=== PATIENT | female | born 1940 | race Caucasian/White ===

== ENCOUNTER 2023-02-23 20:12 | Inpatient (IN) | payer MEDICARE ==
[~2023-02-23 20:12] MED LIST: Iopamidol 300 61% 100 ML VIAL FS ONE
[2023-02-23 21:23] LABS: #Basophils 0.1 10x3/uL (0.0-0.2); #Eosinphils 0.3 10x3/uL (0.0-0.5); #Monocytes 1.8 10x3/uL (0.0-1.1); #Neutrophils 17.5 10x3/uL (1.5-8.4); %Basophils 0.4 % (0.0-2.0); %Eosinophils 1.2 % (0.0-6.0); %Lymphocytes 3.2 % (18.0-47.0); %Monocytes 8.6 % (0.0-10.0); %Neutrophils 86.2 % (40.0-75.0); Hematocrit 31.5 % (34.9-44.5); Hemoglobin 10.6 g/dL (12.0-15.5); Mean Corpuscular HGB CONC 33.7 g/dL (32.0-36.0); Mean Corpuscular Hemoglobin 32.2 pg (27.0-33.0); Mean Corpuscular Volume 95.7 fl (81.6-98.3); Platelet Count 460 10x3/uL (150-450); RBC Distribution Width 16.7 % (11.5-14.5); Red Blood Cell (RBC) Count 3.29 10x6/uL (3.90-5.03); White Blood Cell (WBC) Count 20.3 10x3/uL (3.5-10.5)
[2023-02-23 21:33] LABS: ALT (SGPT) 15 U/L (8-55); AST (SGOT) 25 U/L (5-34); Alkaline Phosphatase 110 U/L (40-110); Anion Gap 14 mmol/L (10-20); BUN (Urea Nitrogen) 21 mg/dL (9.8-20.1); Bilirubin, Total 1.7 mg/dL (0.2-1.2); Calc. Creatinine Clearance 0 mL/min (70-130); Calcium 9.6 mg/dL (7.8-10.44); Carbon Dioxide 25 mmol/L (23-31); Chloride 107 mmol/L (98-107); Estimated GFR 48; Globulin 2.5 g/dL (2.4-3.5); Glucose 131 mg/dL (83-110); Lipase 22 U/L (8-78); Potassium 4.3 mmol/L (3.5-5.1); Protein, Total 6.5 g/dL (5.8-8.1); Sodium 142 mmol/L (136-145)
[2023-02-23 21:39] LABS: Troponin I Less than 0.010 ng/mL (< 0.028)
[2023-02-23] MEDS ORDERED: Ondansetron PF 4 MG/2 ML Vial ONE (22:34)
[2023-02-23 22:36] LABS: SARS-CoV-2 NAA Rapid Test Not Detected (NotDetected)
[2023-02-23 23:03] LABS: Bilirubin Neg (Negative); Blood, Urine 25 (Negative); Clarity Slightly Cloudy (Clear); Glucose, Urine (Dipstick) Normal (Negative); Ketone, Urine Negative (Negative); Leukocyte 100 (Negative); Nitrite Negative (Negative); Protein, Urine (Dipstick) 30 mg/dl (Neg-Trace); Specific Gravity, Urine 1.015 (1.005-1.030); Urobilinogen Normal mg/dL (Less than 2)
[2023-02-23 23:09] LABS: CAUTI Indications for Culture Alt mental st,lethar; WBC/HPF 21-50 HPF (0-3)
[2023-02-23 23:13] LABS: Squamous Epithelial 0-3 HPF (0-3)
[2023-02-23 23:14] LABS: RBC/HPF 0-3 HPF (0-3)
[2023-02-23 23:15] LABS: Bacteria/HPF 1+ HPF (None Seen)
[2023-02-23] MEDS ORDERED: Ketorolac Tromethamine 30 MG/ML VIAL ONE (23:15)
[2023-02-23] MEDS ORDERED: Amoxicillin/Potassium Clav 875 MG TAB ONE (23:15)
[2023-02-23] MEDS ORDERED: metroNIDAZOLE 500 MG/100 ML BAG ONE (23:16)
[2023-02-23 23:17] LABS: Urine Culture Reflex Yes Yes
[2023-02-23] MEDS ORDERED: Promethazine HCl 12.5 MG in Sodium Chloride 0.9% 50 ML IVPB SCH (23:45)
[2023-02-23] MEDS ORDERED: Acetaminophen 500 MG TAB ONE (23:56)
[2023-02-23] MEDS ORDERED: cefTRIAXone (ROCEPHIN) 1 GM VIAL ONE (23:57)
[2023-02-24 00:04] LABS: Lactic Acid 3.6 mmol/L (0.5-2.2)
[2023-02-24] MEDS ORDERED: Ondansetron PF 4 MG/2 ML Vial IVP PRN (00:33)
[2023-02-24] MEDS ORDERED: Calcium Carbonate 500 MG ChewTAB PO PRN (00:33)
[2023-02-24] MEDS ORDERED: cefTRIAXone (ROCEPHIN) 1 GM VIAL ONE (01:18)
[2023-02-24] MEDS ORDERED: Lactated Ringer's 500 ML IV SCH (03:30)
[2023-02-24 03:54] VITALS: BMI 44.7
[2023-02-24 04:28] LABS: Lactic Acid 2.9 mmol/L (0.5-2.2)
[2023-02-24 04:31] LABS: #Basophils 0.1 10x3/uL (0.0-0.2); #Monocytes 0.7 10x3/uL (0.0-1.1); #Neutrophils 15.7 10x3/uL (1.5-8.4); %Basophils 0.4 % (0.0-2.0); %Eosinophils 0.1 % (0.0-6.0); %Lymphocytes 1.5 % (18.0-47.0); %Monocytes 4.3 % (0.0-10.0); %Neutrophils 93.2 % (40.0-75.0); Hematocrit 29.2 % (34.9-44.5); Hemoglobin 9.7 g/dL (12.0-15.5); Mean Corpuscular HGB CONC 33.2 g/dL (32.0-36.0); Mean Corpuscular Hemoglobin 32.7 pg (27.0-33.0); Mean Corpuscular Volume 98.3 fl (81.6-98.3); Mean Platelet Volume 9.8 fl (7.4-10.4); Platelet Count 361 10x3/uL (150-450); RBC Distribution Width 15.9 % (11.5-14.5); Red Blood Cell (RBC) Count 2.97 10x6/uL (3.90-5.03); White Blood Cell (WBC) Count 16.9 10x3/uL (3.5-10.5)
[2023-02-24 04:32] LABS: Anion Gap 16 mmol/L (10-20); BUN (Urea Nitrogen) 22 mg/dL (9.8-20.1); Calc. Creatinine Clearance 72 mL/min (70-130); Calcium 8.8 mg/dL (7.8-10.44); Carbon Dioxide 21 mmol/L (23-31); Chloride 109 mmol/L (98-107); Estimated GFR 55; Glucose 141 mg/dL (83-110); Potassium 4.2 mmol/L (3.5-5.1); Sodium 142 mmol/L (136-145)
[2023-02-24 04:49] LABS: Free T4 (Free Thyroxine) 0.74 ng/dL (0.70-1.48); Thyroid Stimulating Hormone 4.828 uIU/mL (0.35-4.94)
[2023-02-24] MEDS: Levothyroxine 150 MCG TAB PO SCH (08:14)
[2023-02-24] MEDS: Atorvastatin Calcium 10 MG TAB PO SCH (10:12)
[2023-02-24] MEDS: Dronedarone HCl 400 MG TAB PO SCH ×2 (10:12→22:09)
[2023-02-24] MEDS: Allopurinol 100 MG TAB PO SCH (10:12)
[2023-02-24] MEDS: Apixaban 5 MG TAB PO SCH ×2 (10:13→22:10)
[2023-02-24] MEDS: Acetaminophen 325 MG TAB PO PRN (18:26)
[2023-02-24] MEDS: cefTRIAXone\\ROCEPHIN 2 GM in Sodium Chloride 0.9% 100 ML IVPB SCH (22:05)
[2023-02-25 04:17] LABS: #Neutrophils 6.5 10x3/uL (1.5-8.4); %Basophils 0.5 % (0.0-2.0); %Eosinophils 0.5 % (0.0-6.0); %Lymphocytes 12.5 % (18.0-47.0); %Neutrophils 74.8 % (40.0-75.0); Hematocrit 26.3 % (34.9-44.5); Hemoglobin 8.7 g/dL (12.0-15.5); Mean Corpuscular HGB CONC 33.1 g/dL (32.0-36.0); Mean Corpuscular Hemoglobin 32.3 pg (27.0-33.0); Mean Corpuscular Volume 97.8 fl (81.6-98.3); Platelet Count 316 10x3/uL (150-450); RBC Distribution Width 16.4 % (11.5-14.5); Red Blood Cell (RBC) Count 2.69 10x6/uL (3.90-5.03); White Blood Cell (WBC) Count 8.7 10x3/uL (3.5-10.5)
[2023-02-25 04:26] LABS: Anion Gap 12 mmol/L (10-20); BUN (Urea Nitrogen) 18 mg/dL (9.8-20.1); Calc. Creatinine Clearance 89 mL/min (70-130); Calcium 8.8 mg/dL (7.8-10.44); Carbon Dioxide 23 mmol/L (23-31); Chloride 106 mmol/L (98-107); Estimated GFR 71; Glucose 114 mg/dL (83-110); Potassium 3.5 mmol/L (3.5-5.1); Sodium 137 mmol/L (136-145)
[2023-02-25 04:31] LABS: Troponin I Less than 0.010 ng/mL (< 0.028)
[2023-02-25] MEDS: Acetaminophen 325 MG TAB PO PRN ×3 (06:05→20:58)
[2023-02-25] MEDS: Levothyroxine 150 MCG TAB PO SCH (06:11)
[2023-02-25] MEDS: Apixaban 5 MG TAB PO SCH ×2 (08:36→20:58)
[2023-02-25] MEDS: Atorvastatin Calcium 10 MG TAB PO SCH (08:36)
[2023-02-25] MEDS: Allopurinol 100 MG TAB PO SCH (08:36)
[2023-02-25] MEDS: Dronedarone HCl 400 MG TAB PO SCH ×2 (08:36→20:58)
[2023-02-25] MEDS: cefTRIAXone\\ROCEPHIN 2 GM in Sodium Chloride 0.9% 100 ML IVPB SCH (23:09)
[2023-02-26 03:57] LABS: #Eosinphils 0.2 10x3/uL (0.0-0.5); #Neutrophils 4.4 10x3/uL (1.5-8.4); %Basophils 0.5 % (0.0-2.0); %Eosinophils 2.8 % (0.0-6.0); %Lymphocytes 22.6 % (18.0-47.0); %Monocytes 13.9 % (0.0-10.0); %Neutrophils 59.7 % (40.0-75.0); Mean Corpuscular HGB CONC 34.8 g/dL (32.0-36.0); Mean Corpuscular Hemoglobin 33.5 pg (27.0-33.0); Mean Corpuscular Volume 96.2 fl (81.6-98.3); Mean Platelet Volume 9.7 fl (7.4-10.4); Platelet Count 316 10x3/uL (150-450); RBC Distribution Width 15.4 % (11.5-14.5); Red Blood Cell (RBC) Count 2.39 10x6/uL (3.90-5.03); White Blood Cell (WBC) Count 7.4 10x3/uL (3.5-10.5)
[2023-02-26 04:04] LABS: Anion Gap 10 mmol/L (10-20); BUN (Urea Nitrogen) 14 mg/dL (9.8-20.1); Calc. Creatinine Clearance 100 mL/min (70-130); Carbon Dioxide 25 mmol/L (23-31); Chloride 107 mmol/L (98-107); Estimated GFR 82; Glucose 96 mg/dL (83-110); Potassium 3.4 mmol/L (3.5-5.1); Sodium 139 mmol/L (136-145)
[2023-02-26] MEDS: Levothyroxine 150 MCG TAB PO SCH (05:33)
[2023-02-26] MEDS: Dronedarone HCl 400 MG TAB PO SCH ×2 (07:55→21:45)
[2023-02-26] MEDS: Atorvastatin Calcium 10 MG TAB PO SCH (07:56)
[2023-02-26] MEDS: Allopurinol 100 MG TAB PO SCH (07:56)
[2023-02-26] MEDS: Apixaban 5 MG TAB PO SCH ×2 (07:56→21:45)
[2023-02-26] MEDS: cefTRIAXone\\ROCEPHIN 2 GM in Sodium Chloride 0.9% 100 ML IVPB SCH (22:09)
[2023-02-27] MEDS: Acetaminophen 325 MG TAB PO PRN (00:30)
[2023-02-27 04:49] LABS: #Basophils 0.1 10x3/uL (0.0-0.2); #Eosinphils 0.2 10x3/uL (0.0-0.5); #Monocytes 0.9 10x3/uL (0.0-1.1); #Neutrophils 4.2 10x3/uL (1.5-8.4); %Basophils 0.7 % (0.0-2.0); %Eosinophils 3.3 % (0.0-6.0); %Lymphocytes 25.2 % (18.0-47.0); %Neutrophils 57.8 % (40.0-75.0); Hematocrit 22.6 % (34.9-44.5); Hemoglobin 7.7 g/dL (12.0-15.5); Mean Corpuscular HGB CONC 34.1 g/dL (32.0-36.0); Mean Corpuscular Volume 93.8 fl (81.6-98.3); Mean Platelet Volume 9.9 fl (7.4-10.4); Platelet Count 343 10x3/uL (150-450); RBC Distribution Width 15.5 % (11.5-14.5); Red Blood Cell (RBC) Count 2.41 10x6/uL (3.90-5.03); White Blood Cell (WBC) Count 7.3 10x3/uL (3.5-10.5)
[2023-02-27 06:09] LABS: Anion Gap 14 mmol/L (10-20); BUN (Urea Nitrogen) 10 mg/dL (9.8-20.1); Calc. Creatinine Clearance 92 mL/min (70-130); Calcium 9.4 mg/dL (7.8-10.44); Carbon Dioxide 26 mmol/L (23-31); Chloride 105 mmol/L (98-107); Estimated GFR 74; Glucose 93 mg/dL (83-110); Potassium 3.1 mmol/L (3.5-5.1); Sodium 142 mmol/L (136-145)
[2023-02-27] MEDS: Levothyroxine 150 MCG TAB PO SCH (06:11)
[2023-02-27] MEDS ORDERED: Electrolyte Replacement Protocol 1 EACH FS PRN (09:08)
[2023-02-27] MEDS ORDERED: Potassium Chloride 20 MEQ TAB PO SCH ×2 (09:15)
[2023-02-27] MEDS: Allopurinol 100 MG TAB PO SCH (10:13)
[2023-02-27] MEDS: Apixaban 5 MG TAB PO SCH (10:13)
[2023-02-27] MEDS: Atorvastatin Calcium 10 MG TAB PO SCH (10:14)
[2023-02-27] MEDS: Dronedarone HCl 400 MG TAB PO SCH (10:14)
[2023-02-27 12:49] VITALS: BP 146/68; TEMP 98.2
[2023-02-27 13:04] LABS: Potassium 3.8 mmol/L (3.5-5.1)
[2023-02-28] MEDS ORDERED: Fluconazole 100 MG TAB PO SCH (09:00)
[2023-03-01 01:07] LABS: Adenovirus F 40-41 Not Detected (Not Detected); Astrovirus Not Detected (Not Detected); C. difficile toxin A+B Not Detected (Not Detected); Campylobacter by PCR Not Detected (Not Detected); Cryptosporidium Not Detected (Not Detected); Cyclospora cayetanensis Not Detected (Not Detected); Entamoeba histolytica Not Detected (Not Detected); Enteroaggregative E. coli Not Detected (Not Detected); Enteropathogenic E. coli Not Detected (Not Detected); Enterotoxigenic E. coli Not Detected (Not Detected); Giardia lamblia Not Detected (Not Detected); Norovirus GI-GII DETECTED (Not Detected); Plesiomonas shigelloides Not Detected (Not Detected); Rotavirus A Not Detected (Not Detected); Salmonella Not Detected (Not Detected); Sapovirus Not Detected (Not Detected); Shiga-toxin-producing E coli Not Detected (Not Detected); Shigella/Enteroinvasive E coli Not Detected (Not Detected); Vibrio Not Detected (Not Detected); Vibrio cholerae Not Detected (Not Detected); Yersinia enterocolitica Not Detected (Not Detected)
== END 2023-02-27 16:04 | disposition home or self-care (01) | DRG 872 ==
LOC: CSHERS 20:12 → CSHTELE 02-24 00:33
PROVIDERS: ADMIT Student in an Organized Health Care Education/Training Program; ATTEND Internal Medicine
DX: A41.9 Sepsis, unspecified organism (principal); N17.9 Acute kidney failure, unspecified; N39.0 Urinary tract infection, site not specified; E87.20 Acidosis, unspecified; Z68.41 Body mass index [BMI] 40.0-44.9, adult; E03.9 Hypothyroidism, unspecified; R65.20 Severe sepsis without septic shock; M10.9 Gout, unspecified; E78.5 Hyperlipidemia, unspecified; K21.9 Gastro-esophageal reflux disease without esophagitis; I48.0 Paroxysmal atrial fibrillation; I49.5 Sick sinus syndrome; E66.01 Morbid (severe) obesity due to excess calories; E86.0 Dehydration; Z66 Do not resuscitate; K52.9 Noninfective gastroenteritis and colitis, unspecified; I95.9 Hypotension, unspecified; K57.90 Diverticulosis of intestine, part unspecified, without perforation or abscess without bleeding; H81.20 Vestibular neuronitis, unspecified ear; Z90.49 Acquired absence of other specified parts of digestive tract; Z98.890 Other specified postprocedural states; Z88.1 Allergy status to other antibiotic agents; Z95.0 Presence of cardiac pacemaker; Z79.01 Long term (current) use of anticoagulants; Z79.899 Other long term (current) drug therapy; Z11.52 Encounter for screening for COVID-19
CPT/HCPCS: 36415; 70450; 71045; 74177; 80048; 80053; 81001; 82274; 83605; 83690; 83880; 84145; 84439; 84443; 84484; 85025; 86140; 87040; 87086; 87324; 87449; 87507; 93005; 94760; J0696; J1885; J2405; J2550; J3490; Q9967